=== PATIENT | male | born 1990 | race Caucasian/White ===

== ENCOUNTER 2023-01-29 18:51 | Emergency (ER) | payer OTHER, SELFPAY ==
--- NOTE | ~2023-01-29 | XR_ITS ---
EXAM: XR knee LT min 4V DATE: 01/29/2023 19:25 HISTORY: pain swelling left knee, redness ,no injury x 1 week . COMPARISON: None available. FINDINGS: Normal mineralization. No fracture or dislocation. No lytic or blastic lesion. Mild tricom partmental osteoarthritis. No erosion or periosteal change. Subcutaneous edema, most notable laterall y. Small volume joint fluid. IMPRESSION: No acute osseous finding in the left knee. Reviewed, dictated and finalized at location K.
[2023-01-29 18:57] VITALS: BP 139/98; PULSE 101; RESP 16; TEMP 37.7; O2SAT 98
--- NOTE | 2023-01-29 19:08 | ED.GENADULT ---
HPI - General Adult General Chief complaint: Extremity Problem,Nontraumatic Stated complaint: Left Knee Pain Time Seen by Provider: 01/29/23 19:08 Source: patient, RN notes reviewed and old records reviewed Mode of arrival: ambulatory Limitations: no limitations History of Present Illness HPI narrative: 32-year-old male presents to the [facility] with complaints of left knee pain that started 3 days ago. Works in [employer] and does a lot of kneeling, standing, walking movement. Swelling noted just below patella Related Data Allergies Allergy/AdvReac Type Severity Reaction Status Date / Time No Known Allergies Allergy Verified 01/29/23 18:59 Review of Systems Review of Systems: All systems reviewed & are unremarkable except as noted in HPI and below Constitutional: Constitutional: Reports no additional constitutional complaints Eyes: Eyes: Reports no additional eye complaints ENT: Reports system reviewed and no additional complaints, except as documented Cardiovascular: Cardiovascular: Reports no additional cardiovascular complaints, Denies chest pain and Denies dyspnea Respiratory: Respiratory: Reports no additional respiratory complaints, Denies chest congestion, Denies cough and Denies dyspnea Gastrointestinal: Gastrointestinal: Reports no additional gastrointestinal complaints, Denies abdominal pain, Denies nausea and Denies vomiting Musculoskeletal: Musculoskeletal: Reports as per HPI and Reports joint swelling Integumentary/Breasts: Skin/Breast: Reports system reviewed and no additional complaints, except as docu Neurologic: Reports system reviewed and no additional complaints, except as documented Psychiatric: Psychiatric: Reports no additional psychiatric complaints Allergic/Immunologic: Allergic/Immunologic: Reports no additional allergic/immunologic complaints PMFSH Social History Social History Smoking status: Never smoker Gender identity (if verbalized by the patient): Male Comments At the time of my signature, I reviewed and agree with the nursing past medical, surgical, social, and family history. There is no relevant family history pertinent to the patient complaint. Exam Const: General: cooperative, healthy appearing, comfortable, no acute distress, well developed, alert and well nourished Nutritional Appearance: well nourished Orientation/consciousness: patient oriented x3 Limitations: no limitations HENMT: Head: normal to inspection Ears: hearing grossly normal bilaterally and external ears normal Face/Nose/Sinus: Normal external nose present, Normal nares present, Normal nasal mucous membranes and turbinates present and normal facial exam Face and sinus: normal facial exam Eyes: General: appearance normal, both eyes and all related structures Alignment and Position: alignment normal Periorbital: periorbital findings normal Pupils: Equal, round and reactive pupils present EOM: EOMs intact bilaterally Neck: Neck: normal visual inspection, full ROM, no lymphadenopathy and no meningeal signs Chest: Chest palpation & inspection: normal inspection of the chest Resp: Effort & Inspection: normal respiratory effort and able to speak in complete sentences Cardio: Rate: regular rate Rhythm: regular rhythm Back/Spine/Pelvis: Cervical Spine: cervical ROM normal Skin: General skin exam: normal color and no rashes or lesions noted Lesions: no lesions Rashes: no rashes Wounds: no wounds Neuro: General: patient oriented x3, gait normal, tone normal, moves all extremities and no meningeal signs Cranial nerves: Yes Equal, round and reactive pupils present Cognition (Neuro): normal cognition Speech: normal speech Gait exam (Neuro): Normal gait present Extrem: General: normal to inspection, full ROM, capillary refill normal and normal gait Left lower extremity: knee Details: tenderness, swelling Location: of the proximal tibia, normal ROM and
== END 2023-01-29 19:41 | disposition home or self-care (01) ==
PROVIDERS: Emergency Provider Nurse Practitioner
DX: M17.12 Unilateral primary osteoarthritis, left knee (principal); M25.462 Effusion, left knee; M10.9 Gout, unspecified
CPT/HCPCS: 73564; 99213; G0463

== ENCOUNTER 2023-05-10 08:26 | Emergency (ER) | payer SELFPAY ==
[2023-05-10 08:36] VITALS: BP 142/93; PULSE 102; RESP 16; TEMP 36.4; O2SAT 100
--- NOTE | 2023-05-10 08:38 | ED.EAR ---
HPI - Ear Problem General Chief complaint: Ear Stated complaint: left ear issue/throat swollen Time Seen by Provider: 05/10/23 08:40 Source: patient Mode of arrival: ambulatory Limitations: no limitations History of Present Illness HPI Narrative: Nito is a 32-year-old male patient presenting to the clinic today with complaints of left ear pain and sore throat times 2 days. He reports he felt as though the pain started near the ear in is radiating down into the throat. No fever or chills. No known exposure to anyone with COVID, flu, or strep. Related Data Allergies Allergy/AdvReac Type Severity Reaction Status Date / Time No Known Allergies Allergy Verified 05/10/23 08:38 Review of Systems Review of Systems: Pertinent positives per HPI. Patient denies any fever, chills, rash, headache, visual changes, dizziness, cough, runny nose, sore throat, shortness of breath, chest pain, palpitations, nausea, vomiting, diarrhea, constipation, abdominal pain, or any urinary issues. PMFSH Social History Social History Smoking status: Never smoker Gender identity (if verbalized by the patient): Male Comments At the time of my signature, I reviewed and agree with the nursing past medical, surgical, social, and family history. There is no relevant family history pertinent to the patient complaint. Exam Narrative: General: Well-developed, well nourished, in no apparent distress Head: Normocephalic, atraumatic Eyes: Pupils equally round and reactive to light bilaterally, EOM intact, sclera and conjunctive clear, no discharge, lids normal Ears: TMs intact and clear, ear canals clear, no drainage, grossly hearing normal. Nose: Nares patent, no discharge, no inflammation, no sinus tenderness. Mouth: Oropharynx red with mild tonsillar enlargement without lesions or masses, good dentition, MMM. Neck: Supple, trachea midline, enlargement of left anterior cervical nodes, no thyroid masses or goiter palpable. Cardio: Regular rate and rhythm, s1 and s2 normal, no murmur appreciated. Resp: Clear to auscultation bilaterally anteriorly and posteriorly, no rhonchi, rales, wheezing or rubs Course Course Emergency Course: Portions of this record may have been created with voice recognition software. Level of Care: Express Care Visit Vital Signs Vital signs: Vital Signs Temperature 36.4 C 05/10/23 08:36 Pulse Rate 102 H 05/10/23 08:36 Respiratory Rate 16 05/10/23 08:36 Blood Pressure 142/93 H 05/10/23 08:36 Pulse Oximetry 100 05/10/23 08:36 Oxygen Delivery Room Air 05/10/23 08:36 Temperature 36.4 C 05/10/23 08:36 Pulse Rate 102 H 05/10/23 08:36 Respiratory Rate 16 05/10/23 08:36 Blood Pressure 142/93 H 05/10/23 08:36 Pulse Oximetry 100 05/10/23 08:36 Oxygen Delivery Room Air 05/10/23 08:36 Vital signs reviewed Medical Decision Making MDM Narrative Medical decision making narrative: At the time of visit patient is resting comfortably on the exam table. Patient appears nontoxic at this time. Strep screen was obtained was positive in the clinic today. Prescription for amoxicillin was sent to the pharmacy and supportive measures were discussed with the patient he voiced understanding of the discharge instructions and agrees to treatment plan. Return precautions were Differential Diagnosis Differential Diagnosis: Otitis media, otitis externa, eustachian tube dysfunction, strep pharyngitis, upper respiratory infection, mastoiditis Vital Signs Vital Signs: Vital Signs Temperature 36.4 C 05/10/23 08:36 Pulse Rate 102 H 05/10/23 08:36 Respiratory Rate 16 05/10/23 08:36 Blood Pressure 142/93 H 05/10/23 08:36 Pulse Oximetry 100 05/10/23 08:36 Oxygen Delivery Room Air 05/10/23 08:36 Temperature 36.4 C 05/10/23 08:36 Pulse Rate 102 H 05/10/23 08:36 Respiratory Rate 16 05/10/23 08:36 Blood P
== END 2023-05-10 08:40 | disposition home or self-care (01) ==
PROVIDERS: Emergency Provider Nurse Practitioner Family
DX: J02.0 Streptococcal pharyngitis (principal); H92.02 Otalgia, left ear
CPT/HCPCS: 87880; 99213; G0463

== ENCOUNTER 2025-02-04 13:04 | Emergency (ER) | payer OTHER, SELFPAY ==
[2025-02-04 13:11] VITALS: BP 147/98; PULSE 73; RESP 20; TEMP 36.7; O2SAT 100
--- NOTE | 2025-02-04 13:39 | ED_ITS ---
HPI - General Adult General Chief complaint: Extremity Problem,Nontraumatic Stated complaint: swollen right foot/ pain Time Seen by Provider: 02/04/25 13:25 Source: patient and RN notes reviewed Mode of arrival: ambulatory Limitations: no limitations History of Present Illness HPI narrative: Patient presents today complaining of right lateral foot pain times 7-10 days with localized intermittent redness and swelling. States symptoms have improved since onset but they do persist. Denies injury or trauma. Denies numbness or tingling to the foot or toes. Currently rates his pain 5/10 and has been taking ibuprofen with some mild relief. History of gout for which he typically takes tart luz juice. Related Data Allergies Allergy/AdvReac Type Severity Reaction Status Date / Time No Known Allergies Allergy Verified 02/04/25 13:25 [facility] Past Medical History Medical History (Updated 02/04/25 @ 13:44 by Aimee Cortez, CREW MANAGER, ) Gout Social History Social History Smoking status: Never smoker Gender identity (if verbalized by the patient): Male Comments At time of signature, I have reviewed and agree with nursing past medical, surgical, social and family history unless otherwise noted. Please see nursing chart for further information. There is no relevant family history pertinent to the presenting complaint Exam Narrative: GENERAL: Well-appearing, well-nourished, and in no acute distress. HEAD: Normocephalic, atraumatic. EYES: EOMI. No redness or drainage. Conjunctivae normal. ENT: Mucous membranes pink and moist.. NECK: Normal AROM. CHEST: No respiratory distress. EXTREMITIES: Right foot: Localized mild edema to the lateral foot with faint erythema to same affected area with mild tenderness to palpation. No abnormality to the remainder of the foot, ankle. Distal sensation intact in all 5 toes. Capillary refill normal. Pedal pulse normal. Full range of motion of the toes and ankle. SKIN: Warm, dry, no rash. Capillary refill normal. Normal skin turgor. NEURO: No focal deficits. Alert and oriented x3. Gait steady. PSYCH: Normal affect. No signs of depression or anxiety. Course Course Level of Care: Express Care Visit Vital Signs Vital signs: Vital Signs Temperature 98.0 F 02/04/25 13:11 Pulse Rate 73 02/04/25 13:11 Respiratory Rate 20 02/04/25 13:11 Blood Pressure 147/98 H 02/04/25 13:11 Pulse Oximetry 100 02/04/25 13:11 Oxygen Delivery Room Air 02/04/25 13:11 Temperature 98.0 F 02/04/25 13:11 Pulse Rate 73 02/04/25 13:11 Respiratory Rate 20 02/04/25 13:11 Blood Pressure 147/98 H 02/04/25 13:11 Pulse Oximetry 100 02/04/25 13:11 Oxygen Delivery Room Air 02/04/25 13:11 Reviewed Medical Decision Making MDM Narrative Medical decision making narrative: 34-year-old male patient with history of gout presents today with right lateral foot pain x7 -10 days with some mild improvement since onset with ibuprofen. Denies injury or trauma. Upon exam, patient has some faint erythema and localized edema to the lateral foot with tenderness to affected area. Neurovascularly intact. Symptoms consistent with gout. Will treat with prednisone and colchicine. Vital signs stable. Urged patient to find a PCP to initiate new patient appointment. Patient agrees with plan. Anticipatory guidance given. Differential Diagnosis Differential Diagnosis: Osteoarthritis, cellulitis, gout Vital Signs Vital Signs: Vital Signs Temperature 98.0 F 02/04/25 13:11 Pulse Rate 73 02/04/25 13:11 Respiratory Rate 20 02/04/25 13:11 Blood Pressure 147/98 H 02/04/25 13:11 Pulse Oximetry 100 02/04/25 13:11 Oxygen Delivery Room Air 02/04/25 13:11 Temperature 98.0 F 02/04/25 13:11 Pulse Rate 73 02/04/25 13:11 Respiratory Rate 20 02/04/25 13:11 Blood Pressure 147/98 H 02/04/25 13:11 Pulse Oximetry 100 02/04/25 13:11 Oxygen Delivery Room Air 02/04/25 13:11 Critical Care Time Critical Care Time Critical Care Time: No Discharge Plan Discharge Clinical Impression: Acute gout of right foot Patient Disposition: Home Condition: Stable Instructions: Low Purine Diet (ED), Gout (ED) Additional Instructions: Your symptoms are likely due to gout. Please take the prednisone and colchicine as directed. Follow-up with a PCP next week if symptoms are not improving. Your blood pressure was elevated above 120/80 today at Urgent Care. This puts you above the threshold for follow up. Please schedule a followup visit with your personal physician as soon as possible, for further evaluation and treatment. Even blood pressure exceeding 120/80 may indicate pre-hypertension. Patient Language: Korean Prescriptions: New prednisone 50 mg tablet 50 mg PO DAILY 5 Days Qty: 5 0RF colchicine 0.6 mg tablet 0.6 mg PO DAILY 7 Days Qty: 7 0RF Follow-up/Referrals: PHYSICIAN,HEAD CD REACTOR OPERATOR [Primary Care Provider, Internal Medicine] Time of Disposition: 13:45
== END 2025-02-04 13:53 | disposition home or self-care (01) ==
PROVIDERS: Emergency Provider Nurse Practitioner
DX: M10.9 Gout, unspecified (principal)
CPT/HCPCS: 99213; G0463

== ENCOUNTER 2025-03-25 08:22 | Emergency (ER) | payer OTHER, SELFPAY ==
--- NOTE | ~2025-03-25 | XR_ITS ---
Examination: XR elbow RT 2V Clinical History: RT elbow pain and swelling, no injury, 2 days Comparison: None Technique: 4 views right elbow Findings/impression: 1. No fracture or dislocation right elbow. 2. No degenerative changes. Reviewed, dictated and finalized at location R.
[2025-03-25 08:34] VITALS: BP 135/100; PULSE 83; RESP 16; TEMP 36.4; O2SAT 99
--- NOTE | 2025-03-25 09:53 | ED.GENADULT ---
HPI - General Adult General Chief complaint: Skin/Abscess/Foreign Body Stated complaint: right arm elbow swollen Source: patient Mode of arrival: ambulatory Limitations: no limitations History of Present Illness HPI narrative: Patient presents for evaluation of right elbow pain and swelling. He states he first noticed symptoms two nights ago. He denies any specific precipitating cause or injury. 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 He has an underlying history of gout but typically experiences at his foot. He is not on allopurinol. He rates his pain 10/10 in severity. Movement makes the symptoms worse. He tried taking ibuprofen without considerable improvement in his symptoms. He is right hand dominant. He is not on any diuretics, does not consume alcohol regularly or smoke. Related Data Allergies Allergy/AdvReac Type Severity Reaction Status Date / Time No Known Allergies Allergy Verified 03/25/25 09:46 Review of Systems Review of Systems: CONSTITUTIONAL: Denies fever, chills, or sweats. EYES: Denies visual changes, redness, or discharge. ENT: Denies rhinorrhea, congestion, sore throat, or otalgia. CARDIOVASCULAR: Denies chest pain, palpitations, or edema. RESPIRATORY: Denies cough or dyspnea. GASTROINTESTINAL: Denies abdominal pain, nausea, vomiting, or diarrhea. GENITOURINARY: Denies dysuria or hematuria. SKIN: reports redness in the right elbow MUSCULOSKELETAL: reports right elbow pain and swelling NEUROLOGIC: Denies headache, numbness, dizziness, or weakness. PSYCHIATRIC: Denies anxiety or depression. PMFSH Past Medical History Medical History Gout Surgical History Surgical History No pertinent past surgical history Family History Family History Mother Family history non-contributory Social History Social History Smoking status: Never smoker Substance use: never Gender identity (if verbalized by the patient): Male Spiritual care concerns: No Exam Narrative: GENERAL: Well-appearing, well-nourished, and in no acute distress. HEAD: Normocephalic, atraumatic. EYES: PERRLA and EOMI. ENT: Nares clear, no rhinorrhea or epistaxis. Mucous membranes moist. Oropharynx without tonsillar hypertrophy exudate or other lesions. Bilateral TMs pearly estrada nonbulging NECK: Supple. No adenopathy or masses. No carotid bruits or JVD CHEST: Clear to auscultation. No respiratory distress. No wheezes rales or rhonchi HEART: Regular rate and rhythm. No murmur heard. Normal peripheral pulses. ABDOMEN: Soft, nontender, nondistended, normal active bowel sounds. EXTREMITIES: full range of motion of the left elbow without crepitus or deformity. He does exhibit hesitancy with extension secondary to pain no. there is tenderness in the right elbow SKIN: There is erythema and warmth to the right elbow. NEURO: No focal deficits. Alert and oriented x3. PSYCH: Normal mood and affect. Course Course Emergency Course: This is a 34-year-old male who presented for evaluation of right elbow pain, redness and warmth. He does not have considerable swelling to suggest bursitis. X-ray showed arthritic changes. His exam is consistent with gout. Will discharge with prednisone, hydrocodone and he can start allopurinol at the completion of his prednisone to prevent further flares. He does not have loss of range of motion to suggest septic arthritis or disseminated gonococcal infection. Follow-up with primary provider. Go to the ER for worsening symptoms. Patient in agreement with plan of care. Level of Care: Express Care Visit Vital Signs Vital signs: Vital Signs Temperature 36.4 C 03/25/25 08:34 Pulse Rate 83 03/25/25 08:34 Respiratory Rate 16 03/25/25 08:34 Blood Pressure 135/100 H 03/25/25 08:34 Pulse Oximetry 99 03/25/25 08:34 Oxygen Delivery Room Air 03/25/25 08:34 Temperature 36.4 C 03/25/25 08:34 Pulse Rate 83 03/25/25 08:34 Respiratory Rate 16 03/25/25 08:34 Blood Pressure 135/100 H 03/25/25 08:34 Pulse Oximetry 99 03/25/25 08:34 Oxygen Delivery Room Air 03/25/25 08:34 Medical Decision Making Vital Signs Vital Signs: Vital Signs Temperature 36.4 C 03/25/25 08:34 Pulse Rate 83 10/11/25 08:34 Respiratory Rate 16 03/25/25 08:34 Blood Pressure 135/100 H 03/25/25 08:34 Pulse Oximetry 99 03/25/25 08:34 Oxygen Delivery Room Air 03/25/25 08:34 Temperature 36.4 C 03/25/25 08:34 Pulse Rate 83 03/25/25 08:34 Respiratory Rate 16 03/25/25 08:34 Blood Pressure 135/100 H 03/25/25 08:34 Pulse Oximetry 99 03/25/25 08:34 Oxygen Delivery Room Air 03/25/25 08:34 Imaging Data Radiologist's impression: Examination: XR elbow RT 2V Clinical History: RT elbow pain and swelling, no injury, 2 days Comparison: None Technique: 4 views right elbow Findings/impression: 1. No fracture or dislocation right elbow. 2. No degenerative changes. Discharge Plan Discharge Clinical Impression: Arthralgia of elbow, right, Gout Patient Disposition: Home Condition: Stable Instructions: Antibiotic Form, Gout (ED) Patient Language: Spanish Prescriptions: New prednisone 50 mg tablet 50 mg PO DAILY Qty: 5 0RF hydrocodone-acetaminophen 5-325 mg tablet 1 - 2 tablet PO Q6H PRN (Reason: pain) Qty: 15 0RF allopurinol 100 mg tablet 100 mg PO DAILY Qty: 30 0RF Rx Instructions: Start taking after completing prednisone Follow-up/Referrals: Alo Zacarias MD [Physician, Family Practice] Time of Disposition: 11:09
== END 2025-03-25 11:20 | disposition home or self-care (01) ==
PROVIDERS: Emergency Provider Nurse Practitioner
DX: M10.9 Gout, unspecified (principal)
CPT/HCPCS: 73070; 96372; 99213; G0463; J2919